=== PATIENT | female | born 1965 | race Caucasian/White ===

== ENCOUNTER → 2016-06-02 | Outpatient (CLI) | payer BC ==
[2016-06-02 09:45] LABS: Basophils % (A) 1 %; CH 29.8; CHCM 33.8; Eosinophils # (A) 0.1 k/uL (0-0.7); Eosinophils % (A) 3 %; HCT 38.6 % (34.0-46.0); HDW 2.53; HGB 13.2 gm/dL (11.4-16.0); Luc # (Auto) 0.07; Luc % (Auto) 2; Lymphocytes # (A) 1.2 k/uL (1.0-4.8); Lymphocytes % (A) 31 %; MCH 30.2 pg (25.0-35.0); MCHC 34.1 g/dL (31.0-37.0); MCV 88.6 fL (80.0-100.0); Mean Platelet Volume 6.6; Monocytes # (A) 0.2 k/uL (0-1.0); Monocytes % (A) 4 %; Neutrophils # (A) 2.4 k/uL (1.3-7.7); Neutrophils % (A) 60 %; RBC 4.35 m/uL (3.80-5.40); RDW 13.6 % (11.5-15.5); WBC (Perox) 4.17
[2016-06-02 10:09] LABS: ALT 36 U/L (9-52); AST 20 U/L (14-36); Alkaline Phosphatase 55 U/L (38-126); Anion Gap 10 mmol/L; Blood Urea Nitrogen 13 mg/dL (7-17); Calcium 9.1 mg/dL (8.4-10.2); Carbon Dioxide 29 mmol/L (22-30); Chloride 102 mmol/L (98-107); Cholesterol 241 mg/dL (<200); Glucose 95 mg/dL (74-99); HDL Cholesterol 61 mg/dL (40-60); Non-African American GFR(MDRD) >60 (>60 ml/min/1.73 sqM); Potassium 4.2 mmol/L (3.5-5.1); Sodium 141 mmol/L (137-145); Total Bilirubin 2.2 mg/dL (0.2-1.3); Total Protein 7.1 g/dL (6.3-8.2); Triglycerides 200 mg/dL (<150)
== END | disposition home or self-care (01) ==
LOC: LABWHC1 08:54
PROVIDERS: ATTEND Nurse Practitioner Family
DX: Z00.00 Encounter for general adult medical examination without abnormal findings (principal); E03.9 Hypothyroidism, unspecified; E55.9 Vitamin D deficiency, unspecified
CPT/HCPCS: 36415; 80053; 80061; 82306; 84443; 85025

== ENCOUNTER → 2016-06-11 | Outpatient (CLI) | payer BC ==
--- NOTE | 2016-06-11 09:38 | BD ---
EXAMINATION TYPE: MG DEXA axial skeleton. DATE OF EXAM: 06/11/2016 9:01 AM COMPARISON: NONE CLINICAL HISTORY: Height: 63.5 IN Weight: 147 LBS FRAX RISK QUESTIONS: Alcohol (3 or more units per day): NO Family History (Parent hip fracture): NO Glucocorticoids (More than 3mos): NO (Ex: prednisone, prednisolone, methylprednisolone, dexamethasone, and hydrocortisone). History of Fracture in Adulthood: NO Secondary Osteoporosis: 1. Type 1 Diabetes: NO 2. Hyperthyroidism: NO 3. Menopause before 45: NO 4. Malnutrition: NO 5. Chronic liver disease: NO Rheumatoid Arthritis: NO Current Tobacco Use: NO RISK FACTORS HISTORY OF: Active: YES MEDICATIONS: Thyroid Medications: YES Which medication: Synthroid How Lon+ YRS Additional Medications: DRISDOL, SYNTHROID, EXAM MEASUREMENTS: Bone mineral densitometry was performed using the [employer]. Bone mineral density as measured about the Lumbar spine is: ----- L1-L4(G/cm2): 1.237 T Score Values are as follows: ----- L2: 0.5 ----- L3: 0.8 ----- L4: 0.2 ----- L1-L4: 0.5 Bone mineral density BASELINE Bone mineral density about the R hip (g/cm2): 0.999 Bone mineral density about the L hip (g/cm2): 0.965 T Score values are as follows: -----R Neck: -0.3 -----L Neck: -0.5 -----R Intertrochanter: 0.6 -----L Intertrochanter: 0.0 Bone mineral density BASELINE IMPRESSION: Normal (Values between +1 and -1 indicate normal bone mass) NOTE: T-SCORE=SD OF THE YOUNG ADULT MEAN.
--- NOTE | 2016-06-14 10:46 | MM ---
Reason for exam: screening (asymptomatic). Last mammogram was performed 1 year and 1 month ago. History: Benign left breast aspiration of the left breast, October 02, 2012. Benign US LT VAD breast biopsy of the left breast, February 24, 2012. Benign left US cyst aspiration of the left breast, January 05, 2011. Benign US left guided VAD of the left breast, January 05, 2011. Took hormonal contraceptives for 5 years beginning at age 20. Took other hormone for 29 years beginning at age 20. Physical Findings: A clinical breast exam by your physician is recommended on an annual basis and results should be correlated with mammographic findings. MG 3D Screening Mammo W/Cad Bilateral CC and MLO view(s) were taken. Prior study comparison: May 09, 2015, bilateral MG 3d screening mammo w/cad. April 05, 2014, bilateral MG diagnostic mammo w CAD BABATUNDE. The breast tissue is heterogeneously dense. This may lower the sensitivity of mammography. Finding: There is a new 15 mm circumscribed oval mass in the upper outer quadrant, posterior position of the left breast. Previous mammotome biopsy in the left breast x 2. ASSESSMENT: Incomplete: need additional imaging evaluation, BI-RAD 0 RECOMMENDATION: Ultrasound of the left breast. [facility] will attempt to contact patient to return for ultrasound.
== END | disposition home or self-care (01) ==
LOC: RADMAMWWP 08:20
PROVIDERS: ATTEND Family Medicine
DX: Z12.31 Encounter for screening mammogram for malignant neoplasm of breast (principal); Z13.820 Encounter for screening for osteoporosis
CPT/HCPCS: 77080; 77063; G0202

== ENCOUNTER → 2016-06-14 | Outpatient (CLI) | payer BC ==
--- NOTE | 2016-06-14 13:38 | USB ---
Reason for exam: additional evaluation requested from abnormal screening. History: Benign left breast aspiration of the left breast, October 02, 2012. Benign US LT VAD breast biopsy of the left breast, February 24, 2012. Benign left US cyst aspiration of the left breast, January 05, 2011. Benign US left guided VAD of the left breast, January 05, 2011. Took hormonal contraceptives for 5 years beginning at age 20. Took other hormone for 29 years beginning at age 20. Physical Findings: Nurse did not find any significant physical abnormalities on exam. US Breast Workup LT Left breast ultrasound demonstrates a 1.52 x 1.12 x 1.48cm solid lesion at 12 o'clock, a 0.71 x 0.58 x 0.5cm cystic lesion at 1 o'clock, a 1.49 x 0.92 x 1.23cm cystic lesion at 2 o'clock and a 1.97 x 0.99 x 2.87cm solid lesion at 2 o'clock. These results were verbally communicated with the patient and result sheet given to the patient on 06/14/16. ASSESSMENT: Probably benign, BI-RAD 3 RECOMMENDATION: Follow-up diagnostic mammogram and ultrasound of the left breast in 6 months.
== END | disposition home or self-care (01) ==
LOC: RADUSWWP 12:44
PROVIDERS: ATTEND Family Medicine
DX: R92.8 Other abnormal and inconclusive findings on diagnostic imaging of breast (principal)

== ENCOUNTER → 2016-12-29 | Outpatient (CLI) | payer BC ==
--- NOTE | 2016-12-29 11:02 | USB ---
EXAMINATION TYPE: US breast complete LT DATE OF EXAM: 12/29/2016 COMPARISON: Mammograms dated 06/11/2016 and 12/29/2016. CLINICAL HISTORY: R92.8 Abn Mammogram within past 3 years. Targeted left breast ultrasound was performed. At the 12:00 position, 3 cm from the nipple there is a 1.4 x 1.1 x 1.6 cm hypoechoic mass containing a biopsy marker, pathologically previously proven benign. At the 1:00 position, 7 cm from the nipple there is a new 0.4 x 0.2 x 0.3 cm cyst that is anechoic wi th increased through transmission and avascular. At the 2:00 position, 6 cm from the nipple there is a 0.0 x 0.4 x 0.7 cm anechoic avascular simple cy st with increase through transmission, similar to the prior exam in size and morphology. The At the 2: 2:00 to 2:30 position there are 2 adjacent masses measuring 0.9 x 0.6 and 1.4 x 0.8 cm. The first of these is anechoic with a well-defined posterior wall and increased through transmission rel ating to a cyst, similar in size and morphology from the prior exam. The second of these is hypoechoi c with smooth lobular margins, previously biopsied with benign pathology and similar to the prior exa m. At the 3:00 position, 1 cm from the nipple there is an anechoic avascular 0.6 x 0.5 x 0.7 cm cyst wit h increased through transmission. IMPRESSION: Benign findings of the left breast. Annual screening mammography is recommended.
--- NOTE | 2016-12-30 07:30 | MM ---
Reason for exam: follow-up at short interval from prior study. Last mammogram was performed 7 months ago. History: Benign left breast aspiration of the left breast, October 02, 2012. Benign US LT VAD breast biopsy of the left breast, February 24, 2012. Benign left US cyst aspiration of the left breast, January 05, 2011. Benign US left guided VAD of the left breast, January 05, 2011. Took hormonal contraceptives for 5 years beginning at age 20. Took other hormone for 29 years beginning at age 20. Physical Findings: Nurse Summary: A 0.5cm nodule in the left breast at 12 o'clock, and a 1.5cm nodule in the left breast at 3 o'clock (nurse kp). MG 3D Diag Mammo W/Cad LT CC and MLO view(s) were taken of the left breast. Prior study comparison: June 11, 2016, bilateral MG 3d screening mammo w/cad. May 09, 2015, bilateral MG 3d screening mammo w/cad. Multiple benign appearing stable right breast masses. Some previously pathologically proven to be benign. The focal asymmetry in question has decreased in size. These results were verbally communicated with the patient and result sheet given to the patient on 12/29/16. ASSESSMENT: Benign, BI-RAD 2 RECOMMENDATION: Routine screening mammogram of both breasts in 6 months. Back on schedule, May.
== END | disposition home or self-care (01) ==
LOC: RADMAMWWP 09:26
PROVIDERS: ATTEND Family Medicine
DX: R92.8 Other abnormal and inconclusive findings on diagnostic imaging of breast (principal)
CPT/HCPCS: 76641; G0206; G0279

== ENCOUNTER → 2017-07-21 | Outpatient (CLI) | payer BC ==
--- NOTE | 2017-07-21 12:26 | MM ---
Reason for exam: screening (asymptomatic). Last mammogram was performed 7 months ago. History: Benign left breast aspiration of the left breast, October 02, 2012. Benign US LT VAD breast biopsy of the left breast, February 24, 2012. Benign left US cyst aspiration of the left breast, January 05, 2011. Benign US left guided VAD of the left breast, January 05, 2011. Took hormonal contraceptives for 5 years beginning at age 20. Took other hormone for 29 years beginning at age 20. Physical Findings: A clinical breast exam by your physician is recommended on an annual basis and results should be correlated with mammographic findings. MG 3D Screening Mammo W/Cad Bilateral CC and MLO view(s) were taken. Prior study comparison: December 29, 2016, left breast MG 3d diag mammo w/cad LT. June 11, 2016, bilateral MG 3d screening mammo w/cad. The breast tissue is heterogeneously dense. This may lower the sensitivity of mammography. Previous mammotome biopsy in the left breast x 2. No significant changes when compared with prior studies. ASSESSMENT: Benign, BI-RAD 2 RECOMMENDATION: Routine screening mammogram of both breasts in 1 year.
== END | disposition home or self-care (01) ==
LOC: RADMAMWWP 07:10
PROVIDERS: ATTEND Obstetrics & Gynecology
DX: Z12.31 Encounter for screening mammogram for malignant neoplasm of breast (principal)
CPT/HCPCS: 77063; 77067

== ENCOUNTER → 2018-02-10 | Outpatient (CLI) | payer BC ==
--- NOTE | 2018-02-13 09:10 | MM ---
Reason for exam: clinical finding. Last mammogram was performed 7 months ago. History: Benign left breast aspiration of the left breast, October 02, 2012. Benign US LT VAD breast biopsy of the left breast, February 24, 2012. Benign left US cyst aspiration of the left breast, January 05, 2011. Benign US left guided VAD of the left breast, January 05, 2011. Took hormonal contraceptives for 5 years beginning at age 20. Took other hormone for 29 years beginning at age 20. Physical Findings: Nurse Summary: 0.5 x 1cm nodule in the right breast at 12 o'clock (nurse ts). MG 3D Diag Mammo W/Cad LT CC and MLO view(s) were taken of the left breast. Prior study comparison: July 21, 2017, bilateral MG 3d screening mammo w/cad. December 29, 2016, left breast MG 3d diag mammo w/cad LT. The breast tissue is heterogeneously dense. This may lower the sensitivity of mammography. Two nodules previously biopsied. Previous mammotome biopsy in the left breast x 2. BB may correlate with prior biopsy site. No significant new findings when compared with previous films. These results were verbally communicated with the patient and result sheet given to the patient on 02/10/18. ASSESSMENT: Benign, BI-RAD 2 RECOMMENDATION: Return to routine screening mammogram schedule for both breasts. Back on schedule for June 2017. Manage on a clinical basis with regard to palpable.
--- NOTE | 2018-02-13 09:28 | USB ---
Reason for exam: clinical finding. History: Benign left breast aspiration of the left breast, October 02, 2012. Benign US LT VAD breast biopsy of the left breast, February 24, 2012. Benign left US cyst aspiration of the left breast, January 05, 2011. Benign US left guided VAD of the left breast, January 05, 2011. Took hormonal contraceptives for 5 years beginning at age 20. Took other hormone for 29 years beginning at age 20. US Breast LT Left complete breast ultrasound includes all four quadrants, the retroareolar region and axilla. Finding demonstrates a 1.5 x 1.7 x 1.3cm oval, lobular mixed lesion with clip at 12 o'clock BB, this has been biopsied previously and corresponds to current BB, a 0.5 x 0.6 x 0.3cm ova, cystic cluster at 1 o'clock, a 0.4 x 0.4 x 0.4cm round, cystic lesion at 2 o'clock, a 1.4 x 2.7 x 0.9cm oval, mixed lesion at 2 o'clock, a 0.4 x 0.5 x 0.3cm oval, cystic lesion at 3 o'clock, a 0.5 x 0.7 x 0.2cm oval, cystic lesion at 4 o'clock, a 0.4 x 0.2 x 0.4cm oval, lobular, cystic lesion at 9 o'clock and a 0.3 x 0.4 x 0.2cm oval, cystic lesion with harmonics at 11 o'clock. These results were verbally communicated with the patient and result sheet given to the patient on 02/10/18. ASSESSMENT: Benign, BI-RAD 2 RECOMMENDATION: Return to routine screening mammogram schedule for both breasts. Back on schedule for June 2018. Manage on a clinical basis with regard to palpable.
== END | disposition home or self-care (01) ==
LOC: RADMAMWWP 13:25
PROVIDERS: ATTEND Obstetrics & Gynecology
DX: N64.4 Mastodynia (principal)
CPT/HCPCS: 77061; 77065

== ENCOUNTER → 2018-06-16 | Outpatient (CLI) | payer BC ==
[2018-06-16 07:47] LABS: Basophils % (A) 1 %; Eosinophils # (A) 0.1 k/uL (0-0.7); Eosinophils % (A) 3 %; HCT 40.1 % (34.0-46.0); HGB 12.8 gm/dL (11.4-16.0); Lymphocytes # (A) 1.2 k/uL (1.0-4.8); Lymphocytes % (A) 32 %; MCH 28.6 pg (25.0-35.0); MCHC 31.8 g/dL (31.0-37.0); MCV 89.8 fL (80.0-100.0); Monocytes # (A) 0.2 k/uL (0-1.0); Monocytes % (A) 5 %; Neutrophils # (A) 2.2 k/uL (1.3-7.7); Neutrophils % (A) 58 %; Platelet Count 208 k/uL (150-450); RBC 4.47 m/uL (3.80-5.40); RDW 13.9 % (11.5-15.5); WBC 3.7 k/uL (3.8-10.6)
[2018-06-16 12:31] LABS: Albumin 4.3 g/dL (3.80-4.90); Albumin/Globulin Ratio 2.05 (1.20-2.10); Anion Gap 8.2 mmol/L (4.00-12.00); Carbon Dioxide 28.8 mmol/L (21.6-31.8); Globulin 2.1 g/dL (1.6-3.3); LDL Cholesterol,Calculated 132.6 mg/dL (0.0-131.0); Potassium 4.4 mmol/L (3.5-5.5); Total Bilirubin 1.7 mg/dL (0.2-1.2); Total Protein 6.4 g/dL (6.2-8.2); VLDL Calculation 24.4 mg/dL (5.00-40.00)
== END | disposition home or self-care (01) ==
LOC: LABWHC1 07:12
PROVIDERS: ATTEND Family Medicine
DX: E03.9 Hypothyroidism, unspecified (principal); E55.9 Vitamin D deficiency, unspecified; Z13.220 Encounter for screening for lipoid disorders; Z13.29 Encounter for screening for other suspected endocrine disorder
CPT/HCPCS: 36415; 80053; 80061; 82306; 84443; 85025

== ENCOUNTER 2018-11-17 08:11 | Day surgery (SDC) | payer BC ==
[2018-11-14 15:55] VITALS: BMI 24.0
[~2018-11-17 08:11] MED LIST: LACTATED RINGERS 1,000 ML IV SCH
[2018-11-17 08:31] VITALS: RESP 16; TEMP 97.1
[2018-11-17] MEDS ORDERED: LIDOCAINE 1% 20 ML VIAL (10MG/ML) FOR IV START INTRADERMA ONE (08:38)
[2018-11-17] MEDS ORDERED: MIDAZOLAM 2 MG/2 ML VIAL ONE (09:35)
[2018-11-17] MEDS ORDERED: fentaNYL (PF) 50 MCG/ML 2 ML AMP ONE (09:35)
[2018-11-17] MEDS ORDERED: PROPOFOL 10 MG/ML 20 ML VIAL IV ONE (09:35)
--- NOTE | 2018-11-17 09:51 | P.GSHP ---
History of Present Illness H&P Date: 11/17/18 Chief Complaint: Colon cancer screening Patient here today for colonoscopy. She has not had one previously. No bowel related complaints. No family history of colon cancer. Past Medical History Past Medical History: Hyperlipidemia, Thyroid Disorder Additional Past Medical History / Comment(s): occ. palpitations, hemorhoids-occ blood on tissue, loose bowel movements, no rx for cholesterol, History of Any Multi-Drug Resistant Organisms: None Reported Past Surgical History: Cholecystectomy Past Anesthesia/Blood Transfusion Reactions: Postoperative Nausea & Vomiting (PONV) Smoking Status: Never smoker - Past Family History Mother Family Medical History: No Reported History Medications and Allergies Home Medications Medication Instructions Recorded Confirmed Type Ergocalciferol (Vitamin D2) 50,000 unit PO ALONSO 11/14/18 11/17/18 History [Drisdol] Levothyroxine Sodium [Synthroid] 62.5 mcg PO ALONSO 11/14/18 11/17/18 History Levothyroxine Sodium [Synthroid] 125 mcg PO MOTUWETHFRSA 11/14/18 11/17/18 History Allergies Allergy/AdvReac Type Severity Reaction Status Date / Time No Known Allergies Allergy Verified 11/17/18 08:22 Surgical - Exam Vital Signs Temp Pulse Resp BP Pulse Ox 97.1 F L 62 16 123/58 100 11/17/18 08:27 11/17/18 08:27 11/17/18 08:27 11/17/18 08:27 11/17/18 08:27 Physical exam: General: Well-developed, well-nourished HEENT: Normocephalic, sclerae nonicteric Abdomen: Nontender, nondistended Extremities: No edema Neuro: Alert and oriented Assessment and Plan (1) Colon cancer screening Narrative/Plan: Will proceed with colonoscopy at this time. Current Visit: Yes Status: Acute Code(s): Z12.11 - ENCOUNTER FOR SCREENING FOR MALIGNANT NEOPLASM OF COLON SNOMED Code(s): 846707610
--- NOTE | 2018-11-17 10:09 | P.PCN ---
Date of Procedure: 11/17/18 Procedure(s) Performed: PREOPERATIVE DIAGNOSIS: Colon cancer screening POSTOPERATIVE DIAGNOSIS: Normal exam PROCEDURE: Colonoscopy ANESTHESIA: MAC SURGEON: Moo Guzman M.D. SPECIMENS: None ENDOSCOPIC PROCEDURE: The patient was placed on the endoscopy table in the left decubitus position. The Olympus colonoscope was inserted into the anus and passed under direct visualization to the base of the cecum. The appendiceal orifice was visualized. From that point the scope was slowly withdrawn inspecti ng all surfaces carefully. There were no neoplastic inflammatory or polypoid lesions throughout the cecum, ascending, transverse, descending, sigmoid and rectum. There was no visible diverticulosis noted. Digital rectal examination was normal. The patient was taken to the recovery room in stable condition per anesthesia guidelines. RECOMMENDATIONS: Increase fiber. Follow-up colonoscopy 10 years.
[2018-11-17 10:41] VITALS: BP 121/74; PULSE 62
== END 2018-11-17 11:00 | disposition home or self-care (01) ==
LOC: ORWHC2ENDO 08:11
PROVIDERS: ATTEND Surgery
DX: Z12.11 Encounter for screening for malignant neoplasm of colon (principal); E07.9 Disorder of thyroid, unspecified; E78.5 Hyperlipidemia, unspecified; R00.2 Palpitations; Z90.49 Acquired absence of other specified parts of digestive tract; Z79.890 Hormone replacement therapy
CPT/HCPCS: 81025; G0121; J2250; J3010; J2704

== ENCOUNTER → 2018-11-23 | Outpatient (CLI) | payer BC ==
--- NOTE | 2018-11-23 13:23 | MM ---
Reason for exam: screening (asymptomatic). Last mammogram was performed 9 months ago. History: Benign left breast aspiration of the left breast, October 02, 2012. Benign US LT VAD breast biopsy of the left breast, February 24, 2012. Benign left US cyst aspiration of the left breast, January 05, 2011. Benign US left guided VAD of the left breast, January 05, 2011. Took hormonal contraceptives for 5 years beginning at age 20. Took other hormone for 29 years beginning at age 20. Physical Findings: A clinical breast exam by your physician is recommended on an annual basis and results should be correlated with mammographic findings. MG 3D Screening Mammo W/Cad Bilateral CC and MLO view(s) were taken. XCCL view(s) were taken of the left breast. Prior study comparison: February 10, 2018, left breast MG 3d diag mammo w/cad LT. July 21, 2017, bilateral MG 3d screening mammo w/cad. The breast tissue is heterogeneously dense. This may lower the sensitivity of mammography. There are stable left masses x 2 with biopsy markers. No suspicious abnormality in the right breast. Left lateral middle depth asymmetry on CC. ASSESSMENT: Incomplete: need additional imaging evaluation, BI-RAD 0 RECOMMENDATION: Ultrasound of the left breast. (lateral half, pain and asymmetry) [facility] will attempt to contact patient to return for ultrasound.
== END | disposition home or self-care (01) ==
LOC: RADMAMWWP 07:07
PROVIDERS: ATTEND Obstetrics & Gynecology
DX: Z12.31 Encounter for screening mammogram for malignant neoplasm of breast (principal)
CPT/HCPCS: 77063; 77067

== ENCOUNTER → 2018-11-28 | Outpatient (CLI) | payer BC ==
--- NOTE | 2018-11-29 07:54 | USB ---
Reason for exam: additional evaluation requested from abnormal screening. History: Benign left breast aspiration of the left breast, October 02, 2012. Benign US LT VAD breast biopsy of the left breast, February 24, 2012. Benign left US cyst aspiration of the left breast, January 05, 2011. Benign US left guided VAD of the left breast, January 05, 2011. Took hormonal contraceptives for 5 years beginning at age 20. Took other hormone for 29 years beginning at age 20. Physical Findings: Nurse Summary: bilateral nodularity, all soft, movable (nurse ts). US Breast Workup Limited LT Left limited breast ultrasound including focal area of concern, retroareolar and axilla demonstrates a 1.5 x 1.2 x 1.3cm hypoechoic lesion at 12 o'clock, a 0.6 x 0.3 x 0.6cm cystic cluster at 1 o'clock, a 1.3 x 0.7 x 2.4cm hypoechoic lesion at 2 o'clock, a 0.5 x 0.4 x 0.4cm mixed, questionable cystic cluster at 4 o'clock and a 0.7 x 0.2 x 0.5cm cystic lesion at 5 o'clock. Multiple cystic areas visualized. These results were verbally communicated with the patient and result sheet given to the patient on 11/28/18. ASSESSMENT: Probably benign, BI-RAD 3 RECOMMENDATION: Follow-up diagnostic mammogram and ultrasound of the left breast in 6 months.
== END | disposition home or self-care (01) ==
LOC: RADUSWWP 14:45
PROVIDERS: ATTEND Obstetrics & Gynecology
DX: R92.8 Other abnormal and inconclusive findings on diagnostic imaging of breast (principal)

== ENCOUNTER → 2019-05-29 | Outpatient (CLI) | payer BC ==
[2019-05-29 11:39] LABS: Basophils % (A) 1 %; Eosinophils # (A) 0.1 k/uL (0-0.7); Eosinophils % (A) 2 %; HCT 42.3 % (34.0-46.0); HGB 14.1 gm/dL (11.4-16.0); Lymphocytes # (A) 1.7 k/uL (1.0-4.8); Lymphocytes % (A) 37 %; MCHC 33.4 g/dL (31.0-37.0); MCV 89.7 fL (80.0-100.0); Mean Platelet Volume 7.1; Monocytes # (A) 0.2 k/uL (0-1.0); Monocytes % (A) 4 %; Neutrophils # (A) 2.6 k/uL (1.3-7.7); Neutrophils % (A) 55 %; Platelet Count 233 k/uL (150-450); RBC 4.71 m/uL (3.80-5.40); WBC 4.7 k/uL (3.8-10.6)
[2019-05-29 17:03] LABS: African American GFR (CKD) 97.6 (60.0-200.0); Albumin 4.9 g/dL (3.80-4.90); Albumin/Globulin Ratio 2.45 (1.60-3.17); Anion Gap 11.8 mmol/L (4.00-12.00); BUN/Creat Ratio 13.75 Ratio (12.00-20.00); Calcium 9.6 mg/dL (8.7-10.3); Carbon Dioxide 27.2 mmol/L (21.6-31.8); Chol/HDL Ratio 3.41; LDL Cholesterol,Calculated 162.8 mg/dL (0.0-131.0); Non-African American GFR(CKD) 84.2 (60.0-200.0); Potassium 4.5 mmol/L (3.5-5.5); Total Protein 6.9 g/dL (6.2-8.2); VLDL Calculation 30.2 mg/dL (5.00-40.00)
== END | disposition home or self-care (01) ==
LOC: LABWHC1 10:39
PROVIDERS: ATTEND Family Medicine
DX: E55.9 Vitamin D deficiency, unspecified (principal); Z13.220 Encounter for screening for lipoid disorders; Z13.29 Encounter for screening for other suspected endocrine disorder
CPT/HCPCS: 36415; 80053; 80061; 82306; 84439; 84443; 85025

== ENCOUNTER → 2019-08-03 | Outpatient (CLI) | payer BC ==
--- NOTE | 2019-08-03 10:40 | MM ---
Reason for exam: follow-up at short interval from prior study. Last mammogram was performed 8 months ago. History: Benign left breast aspiration of the left breast, October 02, 2012. Benign US LT VAD breast biopsy of the left breast, February 24, 2012. Benign left US cyst aspiration of the left breast, January 05, 2011. Benign US left guided VAD of the left breast, January 05, 2011. Took hormonal contraceptives for 5 years beginning at age 20. Took other hormone for 29 years beginning at age 20. Physical Findings: Nurse Summary: movable palpable areas at 12 o'clock, 2 o'clock, 4 o'clock (nurse TM). MG 3D Diag Mammo W/Cad LT CC and MLO view(s) were taken of the left breast. Prior study comparison: November 23, 2018, bilateral MG 3d screening mammo w/cad. February 10, 2018, left breast MG 3d diag mammo w/cad LT. The breast tissue is heterogeneously dense. This may lower the sensitivity of mammography. There are two oval left upper outer quadrant masses with biopsy markers that are stable. Lateral middle depth asymmetry improves on XCCL and spot CC views. These results were verbally communicated with the patient and result sheet given to the patient on 08/03/19. ASSESSMENT: Incomplete: need additional imaging evaluation, BI-RAD 0 RECOMMENDATION: Ultrasound of the left breast. (palpables and follow up from prior)
--- NOTE | 2019-08-03 10:43 | USB ---
Reason for exam: additional evaluation requested from abnormal screening. History: Benign left breast aspiration of the left breast, October 02, 2012. Benign US LT VAD breast biopsy of the left breast, February 24, 2012. Benign left US cyst aspiration of the left breast, January 05, 2011. Benign US left guided VAD of the left breast, January 05, 2011. Took hormonal contraceptives for 5 years beginning at age 20. Took other hormone for 29 years beginning at age 20. US Breast Limited LT Left limited breast ultrasound including focal area of concern, retroareolar and axilla demonstrates a 1.4 x 1.1 x 1.6cm hypoechoic lesion at 12 o'clock, contains biopsy marker, prior 1.5 x 1.2 x 1.3cm, a 0.7 x 0.4 x 0.6cm cystic cluster at 1 o'clock with posterior enhancement, prior 0.6 x 0.3 x 0.6cm, a 1.4 x 0.9 x 1.9cm hypoechoic lesion at 2 o'clock with biopsy marker within, prior 1.3 x 0.7 x 2.4cm and a 0.7 x 0.3 x 0.8cm cystic cluster at 5 o'clock, prior 0.7 x 0.2 x 0.5cm, well defined posterior wall. These results were verbally communicated with the patient and result sheet given to the patient on 08/03/19. ASSESSMENT: Benign, BI-RAD 2 RECOMMENDATION: Return to routine screening mammogram schedule for both breasts. Back on schedule for October 2019.
== END | disposition home or self-care (01) ==
LOC: RADMAMWWP 07:28
PROVIDERS: ATTEND Obstetrics & Gynecology
DX: R92.8 Other abnormal and inconclusive findings on diagnostic imaging of breast (principal)
CPT/HCPCS: 77061; 77065

== ENCOUNTER → 2019-08-03 | Outpatient (CLI) | payer BC ==
--- NOTE | 2019-08-03 10:12 | FL ---
EXAMINATION TYPE: FL barium swallow DATE OF EXAM: 08/03/2019 CLINICAL HISTORY: Dysphagia. Cervical globus sensation and reflux. TECHNIQUE: A double contrast esophagram is performed utilizing air and barium. A total of 1.37 briana sulema of fluoroscopic time was utilized during procedure. 50 fluoroscopic images were saved. COMPARISON: None FINDINGS: The esophagus shows normal motility and emptying into the stomach. No evidence of hiatal h ernia or stricture noted. Mild degree gastroesophageal reflux was seen during real time performance o f this study in the supine position. There are small cervical anterior osteophytes at C4-C5, C5-C6 an d C6-C7 placing mild impression on the posterior cervical esophagus. IMPRESSION: 1. Mild degree gastroesophageal reflux in the supine position. 2. Small anterior osteophytes of the cervical spine creating minimal impression on the posterior cerv ical esophagus from C4 through C7. 3. Direct visualization with endoscopy could be considered of the esophagus given this patient's symp toms of food getting stuck in the upper cervical esophagus without visualized fracture seen on today' s exam.
== END | disposition home or self-care (01) ==
LOC: RADUSWWP 07:25
PROVIDERS: ATTEND Family Medicine
DX: K21.9 Gastro-esophageal reflux disease without esophagitis (principal)
CPT/HCPCS: 74220

== ENCOUNTER → 2020-06-17 | Outpatient (CLI) | payer BC, OTHER ==
--- NOTE | 2020-06-18 11:21 | MM ---
Reason for exam: screening (asymptomatic). Last mammogram was performed 10 months ago. History: Patient is postmenopausal. Family history of breast cancer in paternal aunt. Benign left breast aspiration of the left breast, October 02, 2012. Benign US LT VAD breast biopsy of the left breast, February 24, 2012. Benign left US cyst aspiration of the left breast, January 05, 2011. Benign US left guided VAD of the left breast, January 05, 2011. Took hormonal contraceptives for 5 years beginning at age 20. Took other hormone for 29 years beginning at age 20. Physical Findings: A clinical breast exam by your physician is recommended on an annual basis and results should be correlated with mammographic findings. MG 3D Screening Mammo W/Cad Bilateral CC and MLO view(s) were taken. Prior study comparison: November 23, 2018, bilateral MG 3d screening mammo w/cad. July 21, 2017, bilateral MG 3d screening mammo w/cad. The breast tissue is heterogeneously dense. This may lower the sensitivity of mammography. Previous mammotome biopsy in the left breast x 2. There is chronic nodularity in the left breast at clips. There is no discrete abnormality. ASSESSMENT: Benign, BI-RAD 2 RECOMMENDATION: Routine screening mammogram of both breasts in 1 year.
== END | disposition home or self-care (01) ==
LOC: RADMAMWWP 07:15
PROVIDERS: ATTEND Obstetrics & Gynecology
DX: Z12.31 Encounter for screening mammogram for malignant neoplasm of breast (principal); Z80.3 Family history of malignant neoplasm of breast
CPT/HCPCS: 77063; 77067

== ENCOUNTER 2021-02-08 23:33 | Emergency (ER) | payer BC, OTHER ==
[2021-02-09] MEDS ORDERED: SODIUM CHLORIDE 0.9% 1,000 ML IV STA
[2021-02-09] MEDS ORDERED: ONDANSETRON 4 MG/2 ML VIAL IVP STA
[2021-02-09 00:18] LABS: Appearance,Urine Clear (Clear); Bilirubin,Urine Negative (Negative); Blood,Urine Negative (Negative); Color,Urine Colorless; Glucose,Urine (UA) Negative (Negative); Ketones,Urine Negative (Negative); Leukocyte Esterase,Urine Negative (Negative); Nitrite,Urine Negative (Negative); Protein,Urine Negative (Negative); Specific Gravity,Urine 1.003 (1.001-1.035); Urobilinogen,Urine <2.0 mg/dL (<2.0)
[2021-02-09 00:19] LABS: Basophils % (A) 1 %; Eosinophils # (A) 0.3 k/uL (0-0.7); Eosinophils % (A) 4 %; HCT 41.7 % (34.0-46.0); HGB 14.2 gm/dL (11.4-16.0); Lymphocytes % (A) 29 %; MCH 30.3 pg (25.0-35.0); MCHC 34.1 g/dL (31.0-37.0); Monocytes # (A) 0.3 k/uL (0-1.0); Monocytes % (A) 5 %; Neutrophils # (A) 4.4 k/uL (1.3-7.7); Neutrophils % (A) 62 %; Platelet Count 235 k/uL (150-450); RBC 4.69 m/uL (3.80-5.40); RDW 13.3 % (11.5-15.5); WBC 7.2 k/uL (3.8-10.6)
[2021-02-09 00:34] LABS: ALT 20 U/L (4-34); AST 26 U/L (14-36); African American GFR (CKD) >90 (>60 ml/min/1.73 sqM); Albumin 4.9 g/dL (3.5-5.0); Alkaline Phosphatase 99 U/L (38-126); Anion Gap 9 mmol/L; Blood Urea Nitrogen 11 mg/dL (7-17); Calcium 10.2 mg/dL (8.4-10.2); Carbon Dioxide 27 mmol/L (22-30); Chloride 104 mmol/L (98-107); Glucose 121 mg/dL (74-99); Non-African American GFR(CKD) >90 (>60 ml/min/1.73 sqM); Potassium 4.2 mmol/L (3.5-5.1); Sodium 140 mmol/L (137-145); Total Bilirubin 1.4 mg/dL (0.2-1.3); Total Protein 7.8 g/dL (6.3-8.2)
[2021-02-09 00:35] LABS: Lipase 126 U/L (23-300)
--- NOTE | 2021-02-09 01:13 | CT ---
EXAMINATION TYPE: CT abdomen pelvis w con DATE OF EXAM: 02/09/2021 COMPARISON: None HISTORY: LUQ Abd Pain CT DLP: 785.20 mGycm Automated exposure control for dose reduction was used. CONTRAST: Performed with IV Contrast, patient injected with 100 mL of Isovue 300. Images obtained from the diaphragm to the floor the pelvis with IV contrast. There is subsegmental atelectasis left lung base. Heart size is normal. There is no pericardial effus ion. Liver spleen pancreas appear intact. The bile ducts are not dilated. There are clips from cholec ystectomy. There is no adrenal mass. Kidneys have normal size and contour. There is no hydronephrosis. Delayed i mages show normal renal excretion. There is no retroperitoneal adenopathy. Ureters are not dilated. T here is no retroperitoneal adenopathy. The bladder distends smoothly. There is no inguinal hernia. Th ere is no evidence of a pelvic mass. There is no free fluid in the pelvis. Uterus is retroverted. Lum bar vertebra appear intact. There is normal spacing and alignment. Posterior elements are intact. The bony pelvis is intact. Hip joints are intact. There is no mesenteric edema. There is no ascites or free air. There is no bowel obstruction. Appendi x appears normal. There is no intestinal wall thickening. There is minimal fat stranding anterior to the spleen adjacent to the abdominal wall. This area measu res 2 cm in diameter. IMPRESSION: Minimal fat stranding anterior to the spleen could relate to small area of trauma or inflammation. No evidence of a splenic rupture.
[2021-02-09] MEDS ORDERED: HYDROmorphone 0.5 MG/0.5 ML SYRINGE IVP STA ×2 (02:03)
[2021-02-09] MEDS ORDERED: KETOROLAC 15 MG/ML 1 ML VIAL IVP STA (02:03)
[2021-02-09] MEDS ORDERED: ACET/COD 300 MG/30 MG STARTER PACK 6 TAB BTL PO STA (02:04)
--- NOTE | 2021-02-09 02:10 | ED ---
Abdominal Pain HPI - General Chief Complaint: Abdominal Pain Stated Complaint: Abdominal Pain Time Seen by Provider: 02/08/21 23:54 Source: patient Mode of arrival: ambulatory Limitations: no limitations - History of Present Illness Initial Comments: 55 year-old female patient presents to the emergency department for evaluation of left upper quadrant abdominal pain that started two days ago. States it started mild and was barely noticeable. She was able to continue her normal routine including exercise and running. States tonight the pain worsened si gnificantly. States it hurts to take a deep breath or when she tries to stand up straight. She denies shortness of breath, cough, fever, or chills. Denies nausea, vomiting, constipation, or diarrhea. Denies any hematuria, dysuria, urinary frequency, or urinary urgency. Denies taking anything for pain. Has had cholecystectomy in the past. Patient denies any recent rash, chest pain, back pain, numbness, tingling, dizziness, weakness, headache, visual changes, or any other complaints. - Related Data Home Medications Medication Instructions Recorded Confirmed Ergocalciferol (Vitamin D2) 50,000 unit PO ALONSO 11/14/18 11/17/18 [Drisdol] Levothyroxine Sodium [Synthroid] 62.5 mcg PO ALONSO 11/14/18 11/17/18 Levothyroxine Sodium [Synthroid] 125 mcg PO MOTUWETHFRSA 11/14/18 11/17/18 Previous Rx's Medication Instructions Recorded Ibuprofen [Motrin] 600 mg PO Q8HR PRN #30 tab 02/09/21 Allergies Allergy/AdvReac Type Severity Reaction Status Date / Time No Known Allergies Allergy Verified 02/08/21 23:53 Review of Systems ROS Statement: Those systems with pertinent positive or pertinent negative responses have been documented in the HPI. ROS Other: All systems not noted in ROS Statement are negative. Past Medical History Past Medical History: Thyroid Disorder History of Any Multi-Drug Resistant Organisms: None Reported Past Surgical History: Cholecystectomy Past Psychological History: No Psychological Hx Reported Smoking Status: Never smoker Past Alcohol Use History: Rare Past Drug Use History: None Reported General Exam Limitations: no limitations General appearance: alert, in no apparent distress, other (This is a well developed, well nourished adult female patient in mild distress related to pain. V/S upon presentation are temp 97.8, pulse 79, respirations 20, BP 127/76, Pulse Ox 99% on room air.) Eye exam: Present: normal appearance, PERRL, EOMI. Absent: scleral icterus, conjunctival injection, periorbital swelling ENT exam: Present: normal exam, normal oropharynx, mucous membranes moist Respiratory exam: Present: normal lung sounds bilaterally. Absent: respiratory distress, wheezes, rales, rhonchi, stridor Cardiovascular Exam: Present: regular rate, normal rhythm, normal heart sounds. Absent: systolic murmur, diastolic murmur, rubs, gallop, clicks GI/Abdominal exam: Present: soft, tenderness (Mild left upper quadrant), normal bowel sounds. Absent: distended, guarding, rebound, rigid Neurological exam: Present: alert, oriented X3, CN II-XII intact Psychiatric exam: Present: normal affect, normal mood Skin exam: Present: warm, dry, intact, normal color. Absent: rash Course Vital Signs 02/08/21 02/09/21 23:51 00:53 Temperature 97.8 F 98.3 F Pulse Rate 79 77 Respiratory 20 22 Rate Blood Pressure 127/76 129/74 O2 Sat by Pulse 99 98 Oximetry Medical Decision Making - Medical Decision Making 55-year-old female patient presents to the emergency department today for evaluation of left upper quadrant abdominal pain. Physical examination did reveal mild left upper quadrant tenderness. Labs reviewed and are unremarkable. CT abdomen and pelvis was obtained and showed evidence for fat stranding anterior to the spleen consistent with possible trauma or inflammation. Patient was given IV fluids and pain medication. Upon reevaluation she is resting more comfortably in bed. Did discuss findings and results with her. She'll be discharged follow-up with her primary care physician for recheck in 1-2 days. She is given pain medicine for home as well as anti-inflammatory medication. Return parameters were discussed in detail. She verbalizes understanding and agrees with this plan. Case discussed with my attending Dr. Chauhan. - Lab Data Result diagrams: 02/09/21 00:15 02/09/21 00:15 Lab Results 02/09/21 02/09/21 02/09/21 Range/Units 00:01 00:15 00:15 WBC 7.2 (3.8-10.6) k/uL RBC 4.69 (3.80-5.40) m/uL Hgb 14.2 (11.4-16.0) gm/dL Hct 41.7 (34.0-46.0) % MCV 89.0 (80.0-100.0) fL MCH 30.3 (25.0-35.0) pg MCHC 34.1 (31.0-37.0) g/dL RDW 13.3 (11.5-15.5) % Plt Count 235 (150-450) k/uL MPV 7.0 Neutrophils % 62 % Lymphocytes % 29 % Monocytes % 5 % Eosinophils % 4 % Basophils % 1 % Neutrophils # 4.4 (1.3-7.7) k/uL Lymphocytes # 2.0 (1.0-4.8) k/uL Monocytes # 0.3 (0-1.0) k/uL Eosinophils # 0.3 (0-0.7) k/uL Basophils # 0.0 (0-0.2) k/uL Sodium 140 (137-145) mmol/L Potassium 4.2 (3.5-5.1) mmol/L Chloride 104 (98-107) mmol/L Carbon Dioxide 27 (22-30) mmol/L Anion Gap 9 mmol/L BUN 11 (7-17) mg/dL Creatinine 0.67 (0.52-1.04) mg/dL Est GFR (CKD-EPI)AfAm >90 (>60 ml/min/1.73 sqM) Est GFR (CKD-EPI)NonAf >90 (>60 ml/min/1.73 sqM) Glucose 121 H (74-99) mg/dL Plasma Lactic Acid Carlin (0.7-2.0) mmol/L Calcium 10.2 (8.4-10.2) mg/dL Total Bilirubin 1.4 H (0.2-1.3) mg/dL AST 26 (14-36) U/L ALT 20 (4-34) U/L Alkaline Phosphatase 99 (38-126) U/L Total Protein 7.8 (6.3-8.2) g/dL Albumin 4.9 (3.5-5.0) g/dL Lipase 126 (23-300) U/L Urine Color Colorless Urine Appearance Clear (Clear) Urine pH 6.0 (5.0-8.0) Ur Specific Thurman 1.003 (1.001-1.035) Urine Protein Negative (Negative) Urine Glucose (UA) Negative (Negative) Urine Ketones Negative (Negative) Urine Blood Negative (Negative) Urine Nitrite Negative (Negative) Urine Bilirubin Negative (Negative) Urine Urobilinogen <2.0 (<2.0) mg/dL Ur Leukocyte Esterase Negative (Negative) 02/09/21 Range/Units 00:15 WBC (3.8-10.6) k/uL RBC (3.80-5.40) m/uL Hgb (11.4-16.0) gm/dL Hct (34.0-46.0) % MCV (80.0-100.0) fL MCH (25.0-35.0) pg MCHC (31.0-37.0) g/dL RDW (11.5-15.5) % Plt Count (150-450) k/uL MPV Neutrophils % % Lymphocytes % % Monocytes % % Eosinophils % % Basophils % % Neutrophils # (1.3-7.7) k/uL Lymphocytes # (1.0-4.8) k/uL Monocytes # (0-1.0) k/uL Eosinophils # (0-0.7) k/uL Basophils # (0-0.2) k/uL Sodium (137-145) mmol/L Potassium (3.5-5.1) mmol/L Chloride (98-107) mmol/L Carbon Dioxide (22-30) mmol/L Anion Gap mmol/L BUN (7-17) mg/dL Creatinine (0.52-1.04) mg/dL Est GFR (CKD-EPI)AfAm (>60 ml/min/1.73 sqM) Est GFR (CKD-EPI)NonAf (>60 ml/min/1.73 sqM) Glucose (74-99) mg/dL Plasma Lactic Acid Carlin 1.2 (0.7-2.0) mmol/L Calcium (8.4-10.2) mg/dL Total Bilirubin (0.2-1.3) mg/dL AST (14-36) U/L ALT (4-34) U/L Alkaline Phosphatase (38-126) U/L Total Protein (6.3-8.2) g/dL Albumin (3.5-5.0) g/dL Lipase (23-300) U/L Urine Color Urine Appearance (Clear) Urine pH (5.0-8.0) Ur Specific Thurman (1.001-1.035) Urine Protein (Negative) Urine Glucose (UA) (Negative) Urine Ketones (Negative) Urine Blood (Negative) Urine Nitrite (Negative) Urine Bilirubin (Negative) Urine Urobilinogen (<2.0) mg/dL Ur Leukocyte Esterase (Negative) - Radiology Data Radiology results: report reviewed, image reviewed CT abdomen and pelvis with contrast was obtained. Report is reviewed in its entirety. Impression by Dr. Garcia shows minimal fat stranding anterior to the splint could relate to small area of trauma or inflammation. No evidence of a splenic rupture. Disposition Clinical Impression: Abdominal pain, Spleen anomaly Disposition: HOME SELF-CARE Condition: Good Instructions (If sedation given, give patient instructions): Abdominal Pain (ED) Additional Instructions: Take medication as needed for pain. Follow up with primary care physician for recheck in 1-2 days. Return for any new, worsening, or concerning symptoms. Prescriptions: Ibuprofen [Motrin] 600 mg PO Q8HR PRN #30 tab PRN Reason: Pain Is patient prescribed a controlled substance at d/c from ED?: No Referrals: Jodie Galaviz DO [Primary Care Provider] - 1-2 days Time of Disposition: 02:10
[2021-02-09 02:21] VITALS: BP 132/72; PULSE 74; RESP 18; TEMP 97.9
== END 2021-02-09 02:21 | disposition home or self-care (01) ==
LOC: EC 23:33
DX: Q89.09 Congenital malformations of spleen (principal); E07.9 Disorder of thyroid, unspecified; Z90.49 Acquired absence of other specified parts of digestive tract
CPT/HCPCS: 99284; 96374; 96375 ×2; 96376; 96361 ×2; 36415; 80053; 83605; 83690; 85025; 81003; 74177; J2405; J1885; J1170; Q9967

== ENCOUNTER → 2021-05-08 | Outpatient (CLI) | payer BC, OTHER ==
[2021-05-08 10:59] LABS: Basophils # (A) 0.04 X 10*3/uL (0.00-0.10); Eosinophils # (A) 0.27 X 10*3/uL (0.04-0.35); Eosinophils % (A) 6.9 %; HCT 42.1 % (37.2-46.3); HGB 13.6 g/dL (12.0-15.0); Lymphocytes # (A) 1.33 X 10*3/uL (0.90-5.00); Lymphocytes % (A) 33.8 %; MCH 28.9 pg (27.0-32.0); MCHC 32.3 g/dL (32.0-37.0); MCV 89.4 fL (80.0-97.0); Mean Platelet Volume 9.8 fL (9.5-12.2); Monocytes % (A) 7.6 %; Neutrophils # (A) 1.98 X 10*3/uL (1.80-7.70); Neutrophils % (A) 50.4 %; Platelet Count 237 X 10*3/uL (140-440); RBC 4.71 X 10*6/uL (4.10-5.20); RDW 13.2 % (11.5-14.5); WBC 3.93 X 10*3/uL (4.50-10.00)
[2021-05-08 12:33] LABS: ALT 17 U/L (8-44); AST 17 U/L (13-35); African American GFR (CKD) 96.2 (60.0-200.0); Albumin 5.1 g/dL (3.8-4.9); Albumin/Globulin Ratio 2.32 (1.60-3.17); Alkaline Phosphatase 83 U/L (41-126); BUN/Creat Ratio 11.13 Ratio (12.00-20.00); Blood Urea Nitrogen 8.9 mg/dL (9.0-27.0); Calcium 9.9 mg/dL (8.7-10.3); Carbon Dioxide 27.6 mmol/L (20.0-27.5); Chloride 103 mmol/L (96-109); Chol/HDL Ratio 3.51 Ratio; Globulin 2.2 g/dL (1.6-3.3); Glucose 99 mg/dL (70-110); Potassium 4.6 mmol/L (3.5-5.5); Sodium 140 mmol/L (135-145); Total Protein 7.3 g/dL (6.2-8.2); VLDL Calculation 17.38 mg/dL (5.00-40.00)
== END | disposition home or self-care (01) ==
LOC: LABWHC1 07:43
PROVIDERS: ATTEND Family Medicine
DX: Z13.220 Encounter for screening for lipoid disorders (principal); E03.9 Hypothyroidism, unspecified; E55.9 Vitamin D deficiency, unspecified
CPT/HCPCS: 36415; 80053; 80061; 82306; 84443; 85025

== ENCOUNTER → 2021-07-03 | Outpatient (CLI) | payer BC, OTHER ==
--- NOTE | 2021-07-06 09:51 | MM ---
Reason for exam: screening (asymptomatic). Last mammogram was performed 1 year and 1 month ago. History: Patient is postmenopausal. Family history of breast cancer in paternal aunt. Benign left breast aspiration of the left breast, October 02, 2012. Benign US LT VAD breast biopsy of the left breast, February 24, 2012. Benign left US cyst aspiration of the left breast, January 05, 2011. Benign US left guided VAD of the left breast, January 05, 2011. Took hormonal contraceptives for 5 years beginning at age 20. Took other hormone for 29 years beginning at age 20. Physical Findings: A clinical breast exam by your physician is recommended on an annual basis and results should be correlated with mammographic findings. MG 3D Screening Mammo W/Cad Bilateral CC and MLO view(s) were taken. XCCL view(s) were taken of the left breast. Prior study comparison: June 17, 2020, bilateral MG 3d screening mammo w/cad. August 03, 2019, left breast MG 3d diag mammo w/cad LT. The breast tissue is heterogeneously dense. This may lower the sensitivity of mammography. Previous mammotome biopsy in the left breast. No significant changes when compared with prior studies. ASSESSMENT: Benign, BI-RAD 2 RECOMMENDATION: Routine screening mammogram of both breasts in 1 year.
== END | disposition home or self-care (01) ==
LOC: RADMAMWWP 09:47
PROVIDERS: ATTEND Obstetrics & Gynecology
DX: Z12.31 Encounter for screening mammogram for malignant neoplasm of breast (principal); Z80.3 Family history of malignant neoplasm of breast; Z78.0 Asymptomatic menopausal state
CPT/HCPCS: 77063; 77067

== ENCOUNTER → 2022-07-02 | Outpatient (CLI) | payer BC ==
[2022-07-02 11:25] LABS: Basophils # (A) 0.03 X 10*3/uL (0.00-0.10); Basophils % (A) 0.8 %; Eosinophils # (A) 0.11 X 10*3/uL (0.04-0.35); Eosinophils % (A) 2.9 %; HGB 12.9 g/dL (12.0-15.0); Immature Grans, Automated 0.3 %; Lymphocytes # (A) 1.34 X 10*3/uL (0.90-5.00); Lymphocytes % (A) 35.3 %; MCH 28.9 pg (27.0-32.0); MCHC 32.3 g/dL (32.0-37.0); MCV 89.7 fL (80.0-97.0); Mean Platelet Volume 9.6 fL (9.5-12.2); Monocytes # (A) 0.27 X 10*3/uL (0.20-1.00); Monocytes % (A) 7.1 %; NRBC Per 100 WBC 0 /100 WBCS (0.0-0.0); Neutrophils # (A) 2.04 X 10*3/uL (1.80-7.70); Neutrophils % (A) 53.6 %; Platelet Count 209 X 10*3/uL (140-440); RBC 4.46 X 10*6/uL (4.10-5.20); RDW 13.4 % (11.5-14.5)
[2022-07-02 11:48] LABS: Chol/HDL Ratio 3.64 Ratio; LDL Cholesterol,Calculated 160.3 mg/dL (0.0-131.0); VLDL Calculation 18.12 mg/dL (5.00-40.00)
[2022-07-02 13:01] LABS: ALT 21 U/L (8-44); AST 21 U/L (13-35); African American GFR (CKD) 104.1 (60.0-200.0); Albumin 4.8 g/dL (3.8-4.9); Albumin/Globulin Ratio 1.92 (1.60-3.17); Alkaline Phosphatase 75 U/L (41-126); BUN/Creat Ratio 12.21 Ratio (12.00-20.00); Blood Urea Nitrogen 9.1 mg/dL (9.0-27.0); Calcium 9.4 mg/dL (8.7-10.3); Carbon Dioxide 28.4 mmol/L (20.0-27.5); Chloride 102 mmol/L (96-109); Globulin 2.5 g/dL (1.6-3.3); Glucose 93 mg/dL (70-110); Non-African American GFR(CKD) 89.8 (60.0-200.0); Potassium 4.3 mmol/L (3.5-5.5); Sodium 142 mmol/L (135-145); Total Protein 7.3 g/dL (6.2-8.2)
== END | disposition home or self-care (01) ==
LOC: LABWHC1 07:08
PROVIDERS: ATTEND Nurse Practitioner Family
DX: Z13.220 Encounter for screening for lipoid disorders (principal); Z13.1 Encounter for screening for diabetes mellitus; E03.9 Hypothyroidism, unspecified; E55.9 Vitamin D deficiency, unspecified
CPT/HCPCS: 36415; 80053; 80061; 82652; 84439; 84443; 85025

== ENCOUNTER → 2022-09-20 | Outpatient (CLI) | payer BC | END | disposition home or self-care (01) | LOC: LABWHC1 07:06 | PROVIDERS: ATTEND Nurse Practitioner Family | DX: E03.9 Hypothyroidism, unspecified (principal) | CPT/HCPCS: 36415; 84443 ==

== ENCOUNTER → 2023-10-14 | Outpatient (CLI) | payer OTHER ==
--- NOTE | 2023-10-18 12:33 | MM ---
Reason for Exam: Screening (asymptomatic). Last mammogram was performed 1 year(s) and 3 month(s) ago. Patient History: Menarche at age 14. First Full-Term at age 30. Late child-bearing (after 30). Postmenopausal. Patient has history of breast feeding. Hormonal Contraceptives, starting at age 20 for 5 years. 10/02/2012, Benign Cyst Aspiration on the left side. 02/24/2012, Benign Core Biopsy on the left side. 01/05/2011, Benign Core Biopsy on the left side. 01/05/2011, Benign Cyst Aspiration on the left side. Risk Values: Esther 5 year model risk: 2.4%. NCI Lifetime model risk: 14.3%. Prior Study Comparison: 06/17/2020 Bilateral Screening Mammogram, [facility]. 07/03/2021 Bilateral Screening Mammogram, [facility]. 07/06/2022 Bilateral MG 3D screening mammo w/cad, [facility]. Tissue Density: The breasts are heterogeneously dense, which may obscure small masses. Findings: Analyzed By CAD. Left breast biopsy clip. Right breast: There is no suspicious group of microcalcifications or new suspicious mass. Left breast: There is no suspicious group of microcalcifications or new suspicious mass. Overall Assessment: Negative, BI-RAD 1 Management: Screening Mammogram of both breasts in [address] [facility] will attempt to contact patient to return for supplemental views and ultrasound if indicated. Patient should continue monthly self-breast exams. A clinical breast exam by your physician is recommended on an annual basis. This exam should not preclude additional follow-up of suspicious palpable abnormalities. Note on Esther scores and lifetime risk: 1. A Esther score greater than 3% is considered moderate risk. If this is the case, consider specialist referral to assess eligibility for a risk reducing agent. 2. If overall lifetime risk for the development of breast cancer is 20% or higher, the patient may qualify for future screening with alternating mammogram and breast MRI. Electronically signed and approved by: Irvin Galdamez DO
== END | disposition home or self-care (01) ==
LOC: RADMAMWWP 15:33
PROVIDERS: ATTEND Obstetrics & Gynecology
DX: Z12.31 Encounter for screening mammogram for malignant neoplasm of breast (principal); Z78.0 Asymptomatic menopausal state
CPT/HCPCS: 77063; 77067

== ENCOUNTER 2024-11-05 17:47 | Emergency (ER) | payer OTHER ==
--- NOTE | 2024-11-05 18:35 | ED ---
General Adult HPI - General Chief complaint: Skin/Abscess/Foreign Body Stated complaint: L leg pain Time Seen by Provider: 11/05/24 18:10 Source: patient, RN notes reviewed, old records reviewed Mode of arrival: ambulatory Limitations: no limitations - History of Present Illness Initial comments: Patient is a 59-year-old female presents emergency department complaining of a intermittent rash since Tuesday. Located over the left foot. 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 States she has been doing more yard work and is concerned she may have intermittent cellulitis. Currently has some mild edema to the left lower extremity but no significant rash. She does have pictures that she has had intermittent erythema over the dorsal aspect of the left foot with some small papules present. This comes and goes. Currently is minimal at this time. Denies fevers or chills. Denies any pain. Describes it as a tingling sensation when is present. Denies any new exposures otherwise. No known allergies. Presents for further evaluation. Concerned she may have cellulitis. - Related Data Home Medications Medication Instructions Recorded Confirmed Ergocalciferol (Vitamin D2) 50,000 unit PO ALONSO 11/14/18 11/17/18 [Drisdol] Levothyroxine Sodium [Synthroid] 62.5 mcg PO ALONSO 11/14/18 11/17/18 Levothyroxine Sodium [Synthroid] 125 mcg PO MOTUWETHFRSA 11/14/18 11/17/18 Previous Rx's Medication Instructions Recorded Ibuprofen [Motrin] 600 mg PO Q8HR PRN #30 tab 02/09/21 Cephalexin [Keflex] 500 mg PO Q12HR 7 Days #14 cap 11/05/24 predniSONE [Deltasone] 20 mg PO DAILY 5 Days #5 tab 11/05/24 Allergies Allergy/AdvReac Type Severity Reaction Status Date / Time No Known Allergies Allergy Verified 11/05/24 18:05 Review of Systems ROS Statement: Those systems with pertinent positive or pertinent negative responses have been documented in the HPI. Review of Systems: CONST: Denies fever EYES: Denies blurry vision ENT: Denies nasal congestion C/V: Denies Chest pain RESP: Denies shortness of breath GI: Denies abdominal pain : Denies dysuria SKIN: Endorses left foot rash that is intermittent MSK: Denies joint pain. NEURO: Denies headache ROS Other: All systems not noted in ROS Statement are negative. Past Medical History Past Medical History: Thyroid Disorder History of Any Multi-Drug Resistant Organisms: None Reported Past Surgical History: Cholecystectomy Past Psychological History: No Psychological Hx Reported Smoking Status: Never smoker Past Alcohol Use History: Rare Past Drug Use History: None Reported General Exam - General Exam Comments Initial Comments: General: Appears in no acute distress. HEAD: Normal with no signs of head trauma. EYES: EOMI. ENT: Hearing grossly intact. RESPIRATORY: No respiratory distress. C/V: Regular rate and rhythm. ABD: Abdomen is nondistended. EXT: No obvious deformity. SKIN: Patient does have a mild amount of erythema over the dorsal aspect of the left foot primarily at the MTP joints. No obvious papules present. Some very mild edema present over the dorsal aspect of the left foot and distal anterior tib-fib. No obvious injury. Neurovascular intact. No obvious fluctuance. No calf pain. NEURO: Alert and oriented. Limitations: no limitations Course Vital Signs 11/05/24 11/05/24 17:57 18:40 Temperature 98.5 F 98.6 F Pulse Rate 100 96 Respiratory 17 18 Rate Blood Pressure 151/94 146/92 O2 Sat by Pulse 98 99 Oximetry Medical Decision Making - Medical Decision Making Was pt. sent in by a medical professional or institution ([facility], [facility], urgent care, hospital, or detention...) When possible be specific @ -No Did you speak to anyone other than the patient for history (EMS, parent, family, police, friend...)? What history was obtained from this source @ -No Did you review nursing and triage notes (agree or disagree)? Why? @ -I reviewed and agree with nursing and triage notes Were old charts reviewed (outside hosp., previous admission, EMS record, old EKG, old radiological studies, urgent care reports/EKG's, detention records)? Report findings @ -No old charts were reviewed Differential Diagnosis (chest pain, altered mental status, abdominal pain women, abdominal pain men, vaginal bleeding, weakness, fever, dyspnea, syncope, headache, dizziness, GI bleed, back pain, seizure, CVA, palpatations, mental hea lth, musculoskeletal)? @ -Cellulitis, allergic reaction, athlete's foot. This list is not inclusive. EKG interpreted by me (3pts min.). @ -None done X-rays interpreted by me (1pt min.). @ -None done CT interpreted by me (1pt min.). @ -None done U/S interpreted by me (1pt. min.). @ -None done What testing was considered but not performed or refused? (CT, X-rays, U/S, labs)? Why? @ -None What meds were considered but not given or refused? Why? @ -None Did you discuss the management of the patient with other professionals (professionals i.e. , PA, [facility] [facility], lab, RT, psych nurse, social sciences instructor, industrial relations worker, teacher, safety instruction police officer, special education case manager)? Give summary @ -No Was smoking cessation discussed for >3mins.? @ -No Was critical care preformed (if so, how long)? @ -No Were there social determinants of health that impacted care today? How? (Homelessness, low income, unemployed, alcoholism, drug addiction, transportation, low edu. Level, literacy, decrease access to med. care, senior care, rehab)? @ -No Was there de-escalation of care discussed even if they declined (Discuss DNR or withdrawal of care, Hospice)? DNR status @ -No What co-morbidities impacted this encounter? (DM, HTN, Smoking, COPD, CAD, Cancer, CVA, ARF, Chemo, Hep., AIDS, mental health diagnosis, sleep apnea, morbid obesity)? @ -None Was patient admitted / discharged? Hospital course, mention meds given and route, prescriptions, significant lab abnormalities, going to OR and other pertinent info. @ -Patient presents emergency department with what appears to be cellulitis. No risk factors for DVT, and exam relatively right now is unremarkable but she does have pictures of intermittent findings since last Tuesday. Due to the concern for the erythema, intermittent papules, as well as mild edema differential includes cellulitis versus possible inflammatory response versus exposure. Patient will be empirically treated with Keflex as well as prednisone. Patient was in agreement this plan. Vitals are within acceptable limits. She will be given a dose of prednisone and Keflex prior to discharge. Strict return precautions discussed. I will provide the patient with a prescription for Keflex, prednisone. I instructed the patient to follow up with their PCP in the next 1-3 days.. I explained that the patient should return to the emergency department if they experience any worsening symptoms. Strict return precautions were discussed with the patient. The patient expressed understanding of these instructions. I answered all questions that the patient had. The patient was discharged home in good condition with their prescriptions and follow up information. Undiagnosed new problem with uncertain prognosis? @ -No Drug Therapy requiring intensive monitoring for toxicity (Heparin, Nitro, Insulin, Cardizem)? @ -No Were any procedures done? @ -No Diagnosis/symptom? @ -Cellulitis Acute, or Chronic, or Acute on Chronic? @ -Acute Uncomplicated (without systemic symptoms) or Complicated (systemic symptoms)? @ -Uncomplicated Side effects of treatment? @ -No Exacerbation, Progression, or Severe Exacerbation? @ -No Poses a threat to life or bodily function? How? (Chest pain, [place], [place], pneumonia, PE, COPD, DKA, ARF, appy, cholecystitis, CVA, Diverticulitis, Homicidal, Suicidal, threat to staff... and all critical care pts) @ -Unlikely at this time Disposition Clinical Impression: Cellulitis Disposition: HOME SELF-CARE Condition: Good Instructions (If sedation given, give patient instructions): Cellulitis (ED) Prescriptions: predniSONE [Deltasone] 20 mg PO DAILY 5 Days #5 tab Cephalexin [Keflex] 500 mg PO Q12HR 7 Days #14 cap Is patient prescribed a controlled substance at d/c from ED?: No Referrals: Jodie Galaviz DO [Primary Care Provider] - 1-2 days Time of Disposition: 18:35
[2024-11-05] MEDS: CEPHALEXIN 500 MG CAP PO STA (18:36)
[2024-11-05] MEDS: predniSONE 20 MG TAB PO STA (18:36)
[2024-11-05 18:42] VITALS: BP 146/92; PULSE 96; RESP 18; TEMP 98.6
== END 2024-11-05 18:46 | disposition home or self-care (01) ==
LOC: EC 17:47
DX: L03.116 Cellulitis of left lower limb (principal)
CPT/HCPCS: 99282; J7512

== ENCOUNTER → 2024-12-06 | Outpatient (CLI) | payer OTHER ==
--- NOTE | 2024-12-06 08:36 | MM ---
Reason for Exam: Screening (asymptomatic). Last mammogram was performed 1 year(s) and 2 month(s) ago. Patient History: Menarche at age 14. First Full-Term at age 30. Late child-bearing (after 30). Postmenopausal. Patient has history of breast feeding. Hormonal Contraceptives, starting at age 20 for 5 years. 10/02/2012, Benign Cyst Aspiration on the left side. 02/24/2012, Benign Core Biopsy on the left side. 01/05/2011, Benign Core Biopsy on the left side. 01/05/2011, Benign Cyst Aspiration on the left side. Risk Values: Esther 5 year model risk: 2.6%. NCI Lifetime model risk: 13.7%. Prior Study Comparison: 07/03/2021 Bilateral Screening Mammogram, [facility]. 07/06/2022 Bilateral MG 3D screening mammo w/cad, [facility]. 10/14/2023 Bilateral MG 3D screening mammo w/cad, [facility]. Tissue Density: The breasts are heterogeneously dense, which may obscure small masses. Findings: Analyzed By CAD. There are 2 biopsy clips at stable circumscribed masses in the left breast redemonstrated. There is no suspicious new group of microcalcifications or new suspicious mass in either breast. Overall Assessment: Benign, BI-RAD 2 Management: Screening Mammogram of both breasts in 1 year. . Patient should continue monthly self-breast exams. A clinical breast exam by your physician is recommended on an annual basis. This exam should not preclude additional follow-up of suspicious palpable abnormalities. Note on Esther scores and lifetime risk: 1. A Esther score greater than 3% is considered moderate risk. If this is the case, consider specialist referral to assess eligibility for a risk reducing agent. 2. If overall lifetime risk for the development of breast cancer is 20% or higher, the patient may qualify for future screening with alternating mammogram and breast MRI. [facility], , 12/06/2024 8:13 AM. Electronically signed and approved by: Armando Caban M.D.
== END | disposition home or self-care (01) ==
LOC: RADMAMWWP 06:52
PROVIDERS: ATTEND Obstetrics & Gynecology
DX: Z12.31 Encounter for screening mammogram for malignant neoplasm of breast (principal); R92.333 Mammographic heterogeneous density, bilateral breasts; N63.20 Unspecified lump in the left breast, unspecified quadrant; Z78.0 Asymptomatic menopausal state; Z92.0 Personal history of contraception
CPT/HCPCS: 77063; 77067